=== PATIENT | male | born 2000 | race Hispanic/Latino ===

== ENCOUNTER 2018-07-25 06:44 | Emergency (ER) | payer BC, OTHER | END 2018-07-25 07:09 | disposition home or self-care (01) | LOC: EDH 06:44 | DX: Z02.83 Encounter for blood-alcohol and blood-drug test (principal); Z72.0 Tobacco use ==

== ENCOUNTER 2018-08-11 19:42 | Emergency (ER) | payer BC, OTHER ==
[2018-08-11] MEDS ORDERED: KETOROLAC TROMETHAMINE 60 MG/2 ML VIAL ONE (20:20)
== END 2018-08-11 21:05 | disposition home or self-care (01) ==
LOC: EDH 19:42
DX: S02.652A Fracture of angle of left mandible, initial encounter for closed fracture (principal); Z72.0 Tobacco use; W22.8XXA Striking against or struck by other objects, initial encounter; Y93.89 Activity, other specified; Y92.098 Other place in other non-institutional residence as the place of occurrence of the external cause; Y99.8 Other external cause status
CPT/HCPCS: 70486; 96372; 99284; J1885